=== PATIENT | male | born 2005 | race Caucasian/White ===

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

== ENCOUNTER 2025-08-02 22:58 | Emergency (ER) | payer OTHER, SELFPAY ==
--- NOTE | ~2025-08-02 | XR_ITS ---
Examination: XR ankle RT 2V, XR foot RT min 3V Clinical History: trauma Comparison: None Technique: 2 views right ankle, 3 views right foot Findings/impression: Right ankle: 1. No fracture or dislocation, given 2 view series. Right foot: 1. No fracture or dislocation. Reviewed, dictated and finalized at location R.
[2025-08-02 23:00] VITALS: BP 166/73; PULSE 94; RESP 18; TEMP 36.6; O2SAT 100
--- OUTSIDE RECORDS SUMMARY | 2025-08-02 23:00 | XMS_ITS | Clinical Summary ---
Author Organization [facility] Address [address] [place] [id number] Care Team Providers Care Associate Software Development Engineer Name Role Phone No, Physician Primary Care Provider [phone] Allergies Active Allergy Reactions Criticality Noted Date Comments Latex Rash Medium 05/23/2022 Penicillins Rash Medium 05/23/2022 Medications dextroamphetami ne-amphetamine (ADDERALL) 7.5 mg tablet Take 7.5 mg by mouth daily 2 Active dextroamphetami ne-amphetamine (ADDERALL) 10 mg tablet Take 10 mg by mouth 2 (two) times a day 2 Active INOSITOL ORALIndications :Supplement- Cellular health Take 1 tablet by mouth every morning Active cholecalciferol , vitamin D3, (VITAMIN D3 ORAL)Indication s:Supplement Take 1 tablet by mouth every morning Active fish oil/borage/flax /om3,6,9 1 (OMEGA 3-6-9 ORAL)Indication s:Supplement Take 1 tablet by mouth every morning Active DIETARY SUPPLEMENT ORALIndications :Supplement Take 1 tablet by mouth every morning Beef oral supplement Active amino acids (AMINO ACID ORAL)Indication s:Supplement Take 1 tablet by mouth every morning Active Active Problems Problem Noted Date Diagnosed Date SVT (supraventricular tachycardia) 11/28/2023 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 Assessment & Plan (03/05/2024 12:22 PM CDT): WPW s/p accessory pathway ablation 02/08/2024 He is doing well post ablation with limited palpitations We discussed using his Perfusix to document any recurrent episodes of SVT Follow up in 2-3 months, sooner as needed Surgical History Surgery Date Site/Laterality Comments IN [facility] CATH ABLATION DISCRETE MECHANISM ARRHYTHMIA 07/16/2017 - 08/15/2017 Cath Ablation Of Bypass Tracts - RF Fluoroscopic Guidance - (Added by [facility] Conv) WISDOM TOOTH EXTRACTION Medical History Medical History Date Comments Pre-excitation syndrome WPW (Wol yb-Vsaffussj-Axawr syndrome) - (Added by TOVA Conv) Family History Medical History Relation Name Comments Anesthesia problems Neg Hx Relation Name Status Comments Mother Social History Tobacco Use Types Packs/Day Years Used Date Smoking Tobacco: Every Day Cigarettes 0.5 7.8 Started: 2018 Vaping Smokeless Tobacco: Never Tobacco Cessation:Ready to Q uit: Yes; Counseling Given: No AUDIT-C Answer Date Recorded Q1: How often do you have a drink containing alcohol? Never 02/08/2024 Q2: How many drinks containi ng alcohol do you have on a typical day when you are drinking? Patient does not drink Q3: How often do you have si x or more drinks on one occasion? Never 02/08/2024 Personal Safety Answer Date Recorded Have you ever been in or are you currently in a harmful physical or emotional relationship or is someone making you feel afraid or unsafe? 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 Gender Identity Not on file Sexual Orientation Not on file Obstetrics History Last Filed Vital Signs Vital Sign Reading Time Taken Comments Blood Pressure 143/77 06/10/2024 3:49 PM CDT Pulse 65 06/10/2024 3:49 PM CDT Temperature 37 C (98.6 F) 02/08/2024 7:00 AM CDT Respiratory Rate 18 02/08/2024 2:50 PM CDT Oxygen Saturation 100% 06/10/2024 3:49 PM CDT Inhaled Oxygen Concentration - - Weight 78.1 kg (172 lb 3.2 oz) 06/10/2024 3:49 PM CDT Height 188 cm (6' 2) 06/10/2024 3:49 PM CDT Body Mass Index 22.11 06/10/2024 3:49 PM CDT Plan of Treatment Health Maintenance Due Date Last Done Comments Depression Screening 2004 Hepatitis C Screening 2004 Pneumococcal vaccine <65 (1 of 1 - PPSV23, PCV20, or PCV21) 01/04/2010 01/13/2005, 2004, 2004, Additional history exists HPV Vaccines (2 - Male 2-dose series) 09/21/2018 03/22/2018 Meningococcal B Vaccine (1 of 2 - Standard) 2020 Regular Well Visit/Exam 18-64 01/04/2022 DTaP/Tdap/Td Vaccine (7 - Td or Tdap) 03/19/2025 03/19/2015, 01/07/2009, 07/20/2005, Additional history exists Influenza Vaccine (#1) 2025 Hepatitis B Screening Completed 01/13/2005 , 2004, 2004 Varicella Vaccines Completed 02/05/2008, 01/13/2005 Meningococcal Vaccine Aged Out 03/19/2015 No stevie liv eligible based on patient's age to complete this topic Medical Devices Implanted Type Area Oyster Harvester Device Identifier Shelf Expiration Date Model / Serial / Lot [employer] Device Vascular Closure Femoral Artery Bioabsorbable Dual Method Vascade 6-7fr Collagen [id number] - [id number] Implanted:Qty: 1 on 02/08/2024 by Nayan Vergara MD PhD at [facility] Vascular Closure Device [employer] 11/16/2025 [id number] / / [id number] [employer] Vascade Mvp 6-12fr Venous Closure [id number] - [id number] Implanted:Qty: 1 on 02/08/2024 by Nayan Vergara MD PhD at [facility] Vascular Closure Device [employer] 11/02/2025 [id number] / / [id number] [employer] Device Closure Vascade Od5 Fr Femoral Artery [id number] - [id number] Implanted:Qty: 1 on 02/08/2024 by Nayan Vergara MD PhD at [facility] Vascular Closure Device [employer] 10/25/2025 [id number] / / [id number] [employer] Device Closure Vascade Od5 Fr Femoral Artery [id number] - [id number] Implanted:Qty: 1 on 02/08/2024 by Nayan Vergara MD PhD at [facility] Vascular Closure Device [employer] 10/25/2025 [id number] / / [id number] Insurance [id number] Care Teams Associate Software Development Engineer Relationship Specialty Start Date End Date No, Physician PCP - General 01/31/24
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
[2025-08-03 01:38] VITALS: BP 130/85; PULSE 84; RESP 20; TEMP 37; O2SAT 100
== END 2025-08-03 01:58 | disposition home or self-care (01) ==
PROVIDERS: Emergency Provider Family Medicine
DX: S93.691A Other sprain of right foot, initial encounter (principal); F17.290 Nicotine dependence, other tobacco product, uncomplicated; V18.4XXA Pedal cycle driver injured in noncollision transport accident in traffic accident, initial encounter; Y93.55 Activity, bike riding
CPT/HCPCS: 73600; 73630; 99283